=== PATIENT | male | born 1965 | race Caucasian/White ===

== ENCOUNTER 2019-09-16 00:04 | Emergency (ER) | payer OTHER, SELFPAY ==
[2019-09-16 00:04] VITALS: BP 166/92; PULSE 73; RESP 15; TEMP 36.6; O2SAT 97; BMI 34.7
--- NOTE | 2019-09-16 00:28 | RAD_ITS ---
STUDY: X-RAY CHEST REASON FOR EXAM: Male, 54 years old. Palpitations and dyspnea. TECHNIQUE: Single AP portable view of the chest. COMPARISON: None. FINDINGS: The lungs are clear and expanded. There is no demonstrated pleural abnormality. Normal size heart. Normal mediastinum and mauricio. Normal visualized pulmonary arteries. There is atherosclerotic tortuosity of the aortic arch and descending thoracic aorta. Normal visualized thoracic spine. Normal visualized ribs, clavicles, and shoulders. There is no demonstrated abnormality of the visualized soft tissue structures of the upper abdomen. RAD/Chest 1 View (Portable) IMPRESSION: No acute cardiopulmonary disease. Electronically Signed: Sneha Thomas MD at 0:44 EDT , Service support ,
--- NOTE | 2019-09-16 00:28 | EKG12_ITS ---
Test Reason : CP Blood Pressure : / mmHG Vent. Rate : 080 BPM Atrial Rate : 080 BPM P-R Int : 192 ms QRS Dur : 092 ms QT Int : 384 ms P-R-T Axes : 020 -24 033 degrees QTc Int : 442 ms Sinus rhythm with Premature atrial complexes Otherwise normal ECG Confirmed by NORMA RAMIREZ, JENAE ([id number]), senior technical editor FABRICIO DIEHL ([id number]) on 09/17/2019 10:55:25 AM Referred By: BENITEZ Confirmed By:JENAE GREEN MD
--- NOTE | 2019-09-16 00:28 | ED.DCSUM_ITS ---
History of Present Illness Chief Complaint: Palpitations Narrative: This is a 54-year-old generally healthy male who presents with palpitations. This began about 4 hours ago. He complains of feeling like his heart is skipping a beat and at times feels like it is difficult to catch his breath. He denies any pain. No recent illness. No fevers nausea vomiting diarrhea. He has had similar symptoms previously but never this persistent. He has had recent travel including to [place] and [place]. No pain or swelling in the legs. No history of DVT or PE. He denies history of diabetes, hyperlipidemia, coronary disease. Past Medical History - Allergies and Home Meds Allergies/Adverse Reactions: Allergies No Known Allergies Allergy (Verified 09/16/19 00:08) Primary Care Physician: Doug Iverson MD [Primary Care Provider] - Past Medical History: - - Hypertension Smoking Status: Never smoker Review of Systems All systems negative except as indicated General: Denies: Fever Cardiovascular: Reports: Palpitations. Denies: Chest pain Respiratory: Reports: Dyspnea Gastrointestinal: Denies: Nausea, Vomiting, Diarrhea Physical Exam Vital Signs/Narrative: Vital Signs Temp Pulse Resp BP Pulse Ox 09/16/19 00:04 97.8 F 73 15 166/92 H 97 Inital Vital Signs reviewed: Yes General: Well nourished, Well developed Head: Normocephalic Eyes: EOMI ENT: Moist mucous membranes Neck: Supple Cardiovascular: - - Heart is regular rate and rhythm, occasional extrasystole Respiratory: No distress, CTA bilaterally Abdomen: Soft, Nontender Extremities: Nontender, No edema Skin: Normal color Neurological: Alert Psychological: Normal affect Diagnostic/Tx/Re-eval Impressions Chest X-Ray 09/16/19 00:28 IMPRESSION: No acute cardiopulmonary disease. Electronically Signed: Sneha Thomas MD at 0:44 EDT , Service support , 09/16/19 00:28 Chest 1 View (Portable) [RAD] Stat Laboratory Results 09/16/19 09/16/19 09/16/19 00:19 00:19 00:19 WBC 6.8 RBC 5.28 Hgb 15.5 Hct 44.4 MCV 84.1 MCH 29.4 MCHC 34.9 RDW Std Deviation 35.4 RDW Coeff of Alec 11.8 Plt Count 171 MPV 9.7 Immature Gran % (Auto) 1.500 H Neut % (Auto) 51.3 Lymph % (Auto) 36.7 [place] % (Auto) 6.9 Eos % (Auto) 2.9 Baso % (Auto) 0.7 Absolute Neuts (auto) 3.5 Absolute Lymphs (auto) 2.51 Nucleated RBC % 0 D-Dimer Quant (PE/DVT) < 0.27 L Sodium 138 Potassium 3.6 Chloride 105 Carbon Dioxide 27.0 Anion Gap 6 BUN 16 Creatinine 1.13 Estim Creat Clear Calc 88.91 Est GFR (MDRD) Af Amer 87 Est GFR (MDRD) Non-Af 72 BUN/Creatinine Ratio 14.2 Glucose 116 H Calcium 9.1 Troponin I < 0.015 - Medical Decision Making EKG shows sinus rhythm with PACs. Labs as above unremarkable and chest x-ray is normal. Patient's presentation is not suggestive of acute coronary syndrome or cardiac ischemia. He has no chest pain and heart score is 2. I do not believe further cardiac work-up is necessary. Negative d-dimer I believe rules out pulmonary embolism. His palpitations are likely just due to PACs. He does not appear to have serious acute life-threatening pathology at this time. He was advised to follow-up as an outpatient. He understands to return for new or worsening symptoms. All questions answered at bedside. Patient agreeable to this plan. ED Disposition - Plan for ED Patient: Disposition: Home or Assisted Living Diagnosis: Palpitations, PAC (premature atrial contraction) Instructions: Palpitations Referrals: Doug Iverson MD [Primary Care Provider] -
[2019-09-16 00:34] LABS: Absolute Lymphocyte Count 2.51 X10^3/uL (0.83-4.51); Absolute Neutrophil Count 3.5 X10^3/uL (2.0-7.7); Basophil# 0.05 X10^3/uL; Basophil% 0.7 % (0-1); Eosinophils% 2.9 % (0-5); Hematocrit 44.4 % (40-54); Hemoglobin 15.5 g/dL (13.0-16.5); Lymphocyte # 2.51 X10^3/ul (4.0); Lymphocyte % 36.7 % (19-41); Mean Corp Hgb Conc 34.9 g/dL (32-36); Mean Corpuscular Hgb 29.4 pg (27.0-32.0); Mean Corpuscular Volume 84.1 fL (80-94); Mean Platelet Vol. 9.7 fl (6.2-12.0); Monocyte# 0.47 X10^3/uL; Monocyte% 6.9 % (0-10); NRBC Flagged by Analyzer 0 % (0-5); Neutrophil # 3.51 X10^3/uL (2.7-7.7); Neutrophil % 51.3 % (47-70); Platelet Count 171 K/mm3 (150-450); RBC Distribution Width CV 11.8 % (11.6-14.6); RBC Distribution Width SD 35.4 fl (35.1-43.9); Red Blood Count 5.28 M/mm3 (4.6-6.2); White Blood Count 6.8 K/mm3 (4.4-11.0)
[2019-09-16] MEDS: 0.9% Normal Saline 1,000 ML 1000 ML IV (00:43)
[2019-09-16 00:46] LABS: D-Dimer Quantitative (DVT/PE) < 0.27 FEU/ug/m (0.27-0.49)
[2019-09-16 00:53] LABS: Anion Gap 6 (5-15); BUN 16 mg/dL (7-18); BUN/Creat Ratio 14.2 RATIO (10-20); Calcium,Total 9.1 mg/dL (8.5-10.1); Chloride 105 mmol/L (98-107); Creatinine, Serum 1.13 mg/dL (0.70-1.30); EST Glomerular Filtration Rate 72 mL/min (>60); Est Glom Filt Rate - Afr Amer 87 mL/min (>60); Estimated Creatinine Clearance 88.91 ml/min; Glucose 116 mg/dL (74-106); Potassium 3.6 mmol/L (3.5-5.1); Sodium Level 138 mmol/L (136-145)
[2019-09-16 01:12] VITALS: RESP 16
== END 2019-09-16 01:12 | disposition home or self-care (01) ==
PROVIDERS: Emergency Provider Emergency Medicine; Family Provider Family Medicine; PCP Family Medicine
DX: I49.1 Atrial premature depolarization (principal); R00.2 Palpitations; I10 Essential (primary) hypertension; Z79.899 Other long term (current) drug therapy
CPT/HCPCS: 71045; 80048; 84484; 85025; 85379; 93005; 99283; J7030; A4216

== ENCOUNTER → 2020-04-22 09:24 | Outpatient (CLI) | payer OTHER, SELFPAY ==
[2020-04-22 12:59] LABS: ALB/GLOB Ratio 1.1 RATIO (0.9-2.4); AST(SGOT) 19 U/L (15-37); Alanine Aminotransfer ALT/SGPT 27 U/L (16-61); Albumin, Serum 3.7 g/dL (3.2-5.0); Alkaline Phosphatase 59 U/L (45-117); Anion Gap 7 (5-15); BUN 15 mg/dL (7-18); BUN/Creat Ratio 12.8 RATIO (10-20); Calcium,Total 8.8 mg/dL (8.5-10.1); Chloride 107 mmol/L (98-107); Cholesterol 175 mg/dL (200); Creatinine, Serum 1.17 mg/dL (0.70-1.30); EST Glomerular Filtration Rate 69 mL/min (>60); Est Glom Filt Rate - Afr Amer 84 mL/min (>60); Globulin 3.4 g/dL (2.2-4.2); Glucose 94 mg/dL (74-106); High Density Lipoprotein 33 mg/dL; PSA,Total - Annual Screen 0.86 ng/mL (0.00-4.00); Potassium 3.9 mmol/L (3.5-5.1); Protein, Total 7.1 g/dL (6.4-8.2); Sodium Level 139 mmol/L (136-145); Triglycerides 208 mg/dL; Very Low Density Lipoprotein 42 mg/dL (5-40)
[2020-04-22 13:08] LABS: Vitamin B12 362 pg/mL (211-911); Vitamin D,25 Hydroxy 14.3 ng/mL
== END ==
PROVIDERS: PCP Family Medicine; Visit Provider Family Medicine
DX: I10 Essential (primary) hypertension (principal); E53.8 Deficiency of other specified B group vitamins; E55.9 Vitamin D deficiency, unspecified; Z12.5 Encounter for screening for malignant neoplasm of prostate
CPT/HCPCS: 36415; 80053; 80061; 82306; 82607; 84153; G0103

== ENCOUNTER → 2020-10-06 15:05 | Outpatient (CLI) | payer OTHER, SELFPAY | PROVIDERS: PCP Family Medicine; Referring Provider Family Medicine; Visit Provider Family Medicine | DX: Z20.828 Contact with and (suspected) exposure to other viral communicable diseases (principal) | CPT/HCPCS: 87635; U0003 ==

== ENCOUNTER → 2021-11-17 14:45 | Outpatient (CLI) | payer OTHER, SELFPAY ==
--- NOTE | 2021-11-17 14:48 | CT_ITS ---
STUDY: CT ABDOMEN AND PELVIS WITH CONTRAST REASON FOR EXAM: Male, 56 years old. abdominal pain RADIATION DOSAGE (If Supplied By Facility): CTDIvol = ( 16.94 ) mGy, DLP = ( 1400.27 ) mGycm TECHNIQUE: Transaxial images were obtained from the dome of the diaphragm to the symphysis pubis with oral contrast. Oral and amp; IV Readi-CAT and amp; 100mL Isovue-300 was administered. Sagittal and coronal images were reconstructed. Individualized dose optimization techniques were used for this CT. COMPARISON: X-ray 10/19/2021 FINDINGS: The visualized lung bases are unremarkable. The visualized portions of the heart are within normal limits. Normal liver. Normal gallbladder and extrahepatic biliary system. Normal spleen. Normal pancreas. Normal bilateral adrenal glands. Normal right kidney. Partial duplication of the left renal collecting system with mild hydronephrosis and ureteral dilatation proximally. Normal visualized stomach. Normal small intestine. Normal colon. The appendix is visualized and appears normal. Normal abdominal aorta. Normal inferior vena cava. Normal retroperitoneum. Normal urinary bladder. There are prostatic calcifications. Normal abdominal wall. Normal osseous structures. CT/Abdomen/Pelvis WITH Contrast IMPRESSION: Normal enhanced CT of the abdomen and pelvis. Electronically Signed: Stephen Ramirez MD at 16:08 EST Tel , Service support ,
[2021-11-17 15:01] LABS: EGFR FINGERSTICK > 60.0000 mL/min (>60)
== END ==
PROVIDERS: PCP Family Medicine; Referring Provider Family Medicine; Visit Provider Family Medicine
DX: R10.9 Unspecified abdominal pain (principal)
CPT/HCPCS: 74177; Q9967

== ENCOUNTER → 2022-06-14 | Outpatient (CLI) | payer OTHER, SELFPAY ==
--- NOTE | 2022-06-14 12:43 | RAD_ITS ---
EXAM: XR LUMBOSACRAL SPINE COMPLETE WITH FLEXION/EXTENSION, 6 OR MORE VIEWS CLINICAL INDICATION: parasthesia of skin TECHNIQUE: Lateral, frontal, oblique and lateral flexion/extension views of the lumbar spine and sacrum. This report was created using [employer] report [employer] technology. COMPARISON: None. FINDINGS: VERTEBRAE: Unremarkable. Preserved vertebral body height. No fracture. No spondylolisthesis. Preservation of the normal lumbar lordosis. No significant facet arthropathy. No instability. DISC SPACES: There is narrowing of the L5-S1 disc space. There is bony neural foraminal narrowing at L4-5 and L5-S1. There is no change in alignment with flexion or extension views. GASTROINTESTINAL TRACT: Unremarkable as visualized. Included bowel gas pattern is non-obstructive. RAD/L/S Spine w Bend Min 6 Vw IMPRESSION: Mild degenerative changes with disc space narrowing and bony neural foraminal narrowing in the lower lumbar spine. There are no acute osseous abnormalities. Electronically Signed: Arash Padron MD at 3:02 EDT ,
== END | disposition home or self-care (01) ==
PROVIDERS: PCP Family Medicine; Referring Provider Family Medicine; Visit Provider Family Medicine
DX: R20.2 Paresthesia of skin (principal)
CPT/HCPCS: 72114

== ENCOUNTER → 2022-07-05 | Outpatient (CLI) | payer OTHER, SELFPAY ==
[2022-07-05 10:38] LABS: ALB/GLOB Ratio 1.1 RATIO (0.9-2.4); AST(SGOT) 14 U/L (15-37); Alanine Aminotransfer ALT/SGPT 26 U/L (16-61); Albumin, Serum 3.6 g/dL (3.2-5.0); Alkaline Phosphatase 61 U/L (45-117); Anion Gap 5 (5-15); BUN 14 mg/dL (7-18); Calcium,Total 8.6 mg/dL (8.5-10.1); Chloride 106 mmol/L (98-107); Cholesterol 156 mg/dL (200); Creatinine, Serum 1.08 mg/dL (0.70-1.30); EST Glomerular Filtration Rate 75 mL/min (>60); Est Glom Filt Rate - Afr Amer 91 mL/min (>60); Globulin 3.4 g/dL (2.2-4.2); Glucose 94 mg/dL (74-106); High Density Lipoprotein 34 mg/dL; PSA,Total - Annual Screen 0.91 ng/mL (0.00-4.00); Potassium 3.8 mmol/L (3.5-5.1); Sodium Level 138 mmol/L (136-145); Triglycerides 187 mg/dL; Very Low Density Lipoprotein 37 mg/dL (5-40)
[2022-07-05 10:48] LABS: Bacteria 0 SEEN /hpf (None Seen); Squamous Epithelial Cells - UA 0 SEEN /hpf (0-5); White Blood Cells 0 SEEN /hpf (0-5)
[2022-07-05 12:38] LABS: Color, Urine Yellow (Yellow); Glucose, Dipstick Normal (Normal); Ketone-Dipstick Negative (Negative); Leukocyte Esterase-Dipstick Negative /ul (Negative); Nitrite-Dipstick Negative (Negative); Occult Blood-Urine 25 /ul (Negative); Protein-Dipstick Negative (Negative); Urine Bilirubin Dipstick Negative (Negative); Urine Clarity Clear (Clear); Urine Urobilinogen 1 mg/dl (Normal)
[2022-07-05 13:14] LABS: Red Blood Cells-Urine 0-5 SEEN /hpf (0-5)
[2022-07-05 13:17] LABS: Mucous, Urine 1+ /hpf (<or=2+)
[2022-07-06 13:18] LABS: V-Zoster IgG (Immunity) 1904 index (Immune >165)
== END | disposition home or self-care (01) ==
LOC: MFPLAB 09:11
PROVIDERS: PCP Family Medicine; Referring Provider Family Medicine; Visit Provider Family Medicine
DX: Z00.00 Encounter for general adult medical examination without abnormal findings (principal); E78.2 Mixed hyperlipidemia; Z12.5 Encounter for screening for malignant neoplasm of prostate
CPT/HCPCS: 36415; 80053; 80061; 81001; 84153; 86787; G0103

== ENCOUNTER → 2023-01-02 | Outpatient (CLI) | payer OTHER, SELFPAY ==
[2023-01-02 10:01] LABS: Erythrocyte Sedimentation Rate 11 mm/hr (0-20)
[2023-01-02 10:02] LABS: Hematocrit 45.5 % (40-54); Hemoglobin 15.4 g/dL (13.0-16.5); Mean Corp Hgb Conc 33.8 g/dL (32-36); Mean Corpuscular Hgb 29.1 pg (27.0-32.0); Mean Corpuscular Volume 85.8 fL (80-94); Mean Platelet Vol. 9.8 fl (6.2-12.0); Platelet Count 171 K/mm3 (150-450); RBC Distribution Width CV 12.1 % (11.6-14.6); RBC Distribution Width SD 37.6 fl (35.1-43.9); White Blood Count 6.4 K/mm3 (4.4-11.0)
[2023-01-02 10:32] LABS: Vitamin B12 280 pg/mL (211-911); Vitamin D,25 Hydroxy 25.6 ng/mL
[2023-01-02 10:41] LABS: ALB/GLOB Ratio 1.1 RATIO (0.9-2.4); AST(SGOT) 14 U/L (15-37); Alanine Aminotransfer ALT/SGPT 29 U/L (16-61); Albumin, Serum 3.7 g/dL (3.2-5.0); Alkaline Phosphatase 59 U/L (45-117); Anion Gap 8 (5-15); BUN 20 mg/dL (7-18); BUN/Creat Ratio 18.3 RATIO (10-20); Calcium,Total 8.6 mg/dL (8.5-10.1); Chloride 109 mmol/L (98-107); Creatinine, Serum 1.09 mg/dL (0.70-1.30); EST Glomerular Filtration Rate 74 mL/min (>60); Est Glom Filt Rate - Afr Amer 90 mL/min (>60); Globulin 3.5 g/dL (2.2-4.2); Glucose 108 mg/dL (74-106); Iron 84 ug/dL (65-175); Potassium 3.8 mmol/L (3.5-5.1); Protein, Total 7.2 g/dL (6.4-8.2); Sodium Level 139 mmol/L (136-145); Thyroid Stim Hormone (TSH) 2.98 uIU/mL (0.358-3.74)
[2023-01-03 18:36] LABS: ANTINUCLEAR ANTIBODIES DIRECT Negative (Negative)
== END | disposition home or self-care (01) ==
LOC: MFPLAB 09:07
PROVIDERS: PCP Family Medicine; Visit Provider Family Medicine
DX: R20.2 Paresthesia of skin (principal)
CPT/HCPCS: 36415; 80053; 82306; 82607; 83540; 84443; 85027; 85652; 86038

== ENCOUNTER → 2023-07-10 | Outpatient (CLI) | payer OTHER, SELFPAY ==
[2023-07-10 10:43] LABS: Vitamin B12 280 pg/mL (211-911); Vitamin D,25 Hydroxy 28.5 ng/mL
[2023-07-10 10:46] LABS: Anion Gap 5 (5-15); BUN 17 mg/dL (7-18); BUN/Creat Ratio 15.6 RATIO (10-20); Calcium,Total 8.9 mg/dL (8.5-10.1); Chloride 109 mmol/L (98-107); Cholesterol 174 mg/dL (200); Creatinine, Serum 1.09 mg/dL (0.70-1.30); EST Glomerular Filtration Rate 74 mL/min (>60); Est Glom Filt Rate - Afr Amer 90 mL/min (>60); Glucose 101 mg/dL (74-106); High Density Lipoprotein 33 mg/dL; PSA,Total - Annual Screen 0.91 ng/mL (0.00-4.00); Potassium 3.9 mmol/L (3.5-5.1); Sodium Level 138 mmol/L (136-145); Triglycerides 215 mg/dL; Very Low Density Lipoprotein 43 mg/dL (5-40)
== END | disposition home or self-care (01) ==
LOC: MFPLAB 09:03
PROVIDERS: PCP Family Medicine; Visit Provider Family Medicine
DX: I10 Essential (primary) hypertension (principal); E55.9 Vitamin D deficiency, unspecified; Z12.5 Encounter for screening for malignant neoplasm of prostate
CPT/HCPCS: 36415; 80048; 80061; 82306; 82607; 84153; G0103

== ENCOUNTER → 2023-11-16 | Outpatient (CLI) | payer OTHER, SELFPAY ==
--- NOTE | 2023-11-16 08:09 | MRI_ITS ---
STUDY: MRI LUMBAR SPINE WITHOUT CONTRAST REASON FOR EXAM: Male, 58 years old. numbness of toes/ R FOOT TECHNIQUE: Standardized fat and water weighted pulse sequences were obtained in the sagittal and axial planes. Numbness in toes, RIGHT foot images obtained. Contrast: No contrast administered COMPARISON: None FINDINGS: Vertebral bodies and alignment. 1. Vertebral body height and alignment are maintained. No evidence of marrow edema or occult fracture. Mild discogenic endplate changes involving the superior endplate of L5 consistent with Modic type II changes. No destructive marrow replacement process. 2. Paraspinous soft tissue planes have normal appearance. Normal appearance of the muscular fascial planes of the erector spinae. 3. Normal appearance of the sacrum and sacroiliac joints. Intervertebral disks levels. T12-L1: Normal endplates. Normal disc height, hydration and morphology. Normal bilateral facet joints. Normal central canal and bilateral lateral recesses. Normal bilateral intervertebral neural foramina. L1-2: Normal endplates. Normal disc height, hydration and morphology. Normal bilateral facet joints. Normal central canal and bilateral lateral recesses. Normal bilateral intervertebral neural foramina. L2-3: Mild facet hypertrophic changes, no disc herniation canal or foraminal stenosis. No evidence of nerve root impingement. L3-4: Disc desiccation, broad-based posterior disc bulge, facet and ligamentum flavum hypertrophic changes are present. Central thecal sac is normal in AP dimension, mild crowding of lateral recesses however no nerve root impingement. The neural foramina are widely patent. L4-5: Mild disc desiccation, broad-based disc bulge and minimal osteophyte, no evidence of canal stenosis or kala herniation. There is a LEFT foraminal bulge and annular tear with deformity of the LEFT neural foramen, contact and mild displacement of the LEFT L4 nerve root within and lateral to the neural foramen without kala nerve root impingement. L5-S1: Disc desiccation, broad-based central disc protrusion slightly greater on LEFT than RIGHT, no central canal stenosis. There is crowding of nerve roots lateral recesses greater on LEFT than RIGHT without kala nerve root impingement. The neural foramina are widely patent. Spinal cord: Normal appearance of the spinal cord and conus. Conus is located at L1. Cauda equina has normal appearance. No evidence of cord compression or edema. No intramedullary signal abnormality noted. MRI/Spine Lumbar (Routine) IMPRESSION: 1. Broad-based disc bulge at L4-5 without central canal stenosis however LEFT foraminal bulge/broad-based borderline protrusion extends into the LEFT neural foramen and results in foraminal stenosis at, mild displacement of the emerging LEFT L4 nerve root without kala nerve root impingement. There is an annular tear involving the foraminal bulge/protrusion. 2. Broad-based central disc protrusion at L5-S1 without canal stenosis. Mild deformity of lateral recesses and crowding of nerve roots greater on LEFT than RIGHT without kala nerve root impingement. Neural foramina are widely patent. 3. Normal appearance of the spinal cord and conus. No intramedullary signal abnormalities noted. 4. Mild multilevel facet hypertrophic changes and moderate facet arthropathy. Electronically Signed: Stephen Murrieta MD at 15:17 EST ,
== END | disposition home or self-care (01) ==
PROVIDERS: PCP Family Medicine; Referring Provider Family Medicine; Visit Provider Family Medicine
DX: M54.50 Low back pain, unspecified (principal); R20.0 Anesthesia of skin
CPT/HCPCS: 72148

== ENCOUNTER → 2025-08-21 | Outpatient (CLI) | payer OTHER, SELFPAY ==
--- NOTE | 2025-08-21 13:00 | BI_ITS ---
EXAM: DIAG MAMM W/CAD, BILAT; BREAST LIMITED UNILATERAL 08/21/2025 CLINICAL HISTORY: M, Age 60 y/o , HX OF ANGIOLIPOMA 2015 IN SAME AREA. L SIDE 3 CM; LEFT BREAST LUMP TECHNIQUE: Procedure Code: [id number]; USBRSTLIMIT Modality: MG; US Procedure: DIAG MAMM W/CAD, BILAT; BREAST LIMITED UNILATERAL. COMPARISON: Prior exam(s) dated 2015. FINDINGS: TISSUE DENSITY: The breasts are almost entirely fatty. Bilateral Breast Mammographic Findings: No significant masses, calcifications or other abnormalities are identified. Patient complains of a palpable lump in the left breast so further evaluation of the left breast with ultrasound was performed Left breast ultrasound Focused left breast ultrasound in the upper-outer quadrant/axilla shows a subcutaneous hyperechoic likely lipoma measuring 5.8 x 4.6 x 3.7 cm. No suspicious shadowing solid lesion or architectural distortion BI/DIAG MAMM W/CAD, BILAT IMPRESSION: Palpable lump corresponds to a likely well-defined subcutaneous lipoma measurin g 5.8 x 4.6 x 3.7 cm. No suspicious findings OVERALL FINAL ASSESSMENT BI-RADS 2: BENIGN RECOMMENDATION: Routine annual follow-up in 1 Year Additional Recommendation none A letter with findings and recommendations will be mailed to the patient. Reading Location: [id number]
--- NOTE | 2025-08-21 13:57 | US_ITS ---
EXAM: DIAG MAMM W/CAD, BILAT; BREAST LIMITED UNILATERAL 08/21/2025 CLINICAL HISTORY: M, Age 60 y/o , HX OF ANGIOLIPOMA 2015 IN SAME AREA. L SIDE 3 CM; LEFT BREAST LUMP TECHNIQUE: Procedure Code: [id number]; USBRSTLIMIT Modality: MG; US Procedure: DIAG MAMM W/CAD, BILAT; BREAST LIMITED UNILATERAL. COMPARISON: Prior exam(s) dated 2015. FINDINGS: TISSUE DENSITY: The breasts are almost entirely fatty. Bilateral Breast Mammographic Findings: No significant masses, calcifications or other abnormalities are identified. Patient complains of a palpable lump in the left breast so further evaluation of the left breast with ultrasound was performed Left breast ultrasound Focused left breast ultrasound in the upper-outer quadrant/axilla shows a subcutaneous hyperechoic likely lipoma measuring 5.8 x 4.6 x 3.7 cm. No suspicious shadowing solid lesion or architectural distortion US/Breast Limited Unilateral IMPRESSION: Palpable lump corresponds to a likely well-defined subcutaneous lipoma measurin g 5.8 x 4.6 x 3.7 cm. No suspicious findings OVERALL FINAL ASSESSMENT BI-RADS 2: BENIGN RECOMMENDATION: Routine annual follow-up in 1 Year Additional Recommendation none A letter with findings and recommendations will be mailed to the patient. Reading Location: [id number]
== END | disposition home or self-care (01) ==
PROVIDERS: PCP Family Medicine; Referring Provider Family Medicine; Visit Provider Family Medicine
DX: N63.20 Unspecified lump in the left breast, unspecified quadrant (principal)
CPT/HCPCS: 76642; 77062; 77066; G0279